=== PATIENT | male | born 1985 | race Two or more races ===

== ENCOUNTER → 2024-10-05 | Outpatient (CLI) | payer BC ==
[2024-10-05 08:03] LABS: Urine Protein, UAD Negative (Negative)
[2024-10-05 08:04] LABS: Hematocrit 48.9 % (41.0-53.0); Hemoglobin 17.4 g/dL (13.5-17.5); Mean Corpuscular Hemoglobin 30.3 pg (28.0-32.0); Mean Corpuscular Volume 84.9 fL (80.0-100.0); Nucleated Red Blood Cells % 0.2 %
[2024-10-05 08:25] LABS: Alkaline Phosphatase 76 U/L (46-116); Anion Gap 7 (5-15); BUN/Creatinine Ratio 14.2 (10.0-20.0); Blood Urea Nitrogen 19 mg/dL (9-23); Calcium 9.6 mg/dL (8.7-10.4); Chloride 103 mmol/L (98-107); Glucose 96 mg/dL (74-106); Potassium 4.1 mmol/L (3.5-5.1); Sodium 141 mmol/L (136-145); Total Protein 7.1 g/dL (5.7-8.2); Triglycerides 106 mg/dL (< 150)
[2024-10-05 08:26] LABS: Bilirubin, Total 1.2 mg/dL (0.2-1.0)
[2024-10-05 08:30] LABS: Alanine Aminotransferase 45 U/L (7-40); Albumin 5.0 g/dL (3.2-4.8); Carbon Dioxide 31 mmol/L (20-31); Cholesterol 246 mg/dL (< 200); HDL Cholesterol 67 mg/dL (40-59)
[2024-10-05 10:42] LABS: Free T4 (Free Thyroxine) 1.31 ng/dL (0.89-1.76)
== END | disposition home or self-care (01) ==
LOC: LAB 07:08
PROVIDERS: ATTEND Internal Medicine
DX: Z00.00 Encounter for general adult medical examination without abnormal findings (principal)
CPT/HCPCS: 36415; 80053; 80061; 81001; 82043; 82306; 82607; 83036; 84439; 84443; 84480; 85025

== ENCOUNTER 2024-10-31 06:21 | Outpatient (CLI) | payer BC ==
[2024-10-31 07:25] LABS: Alanine Aminotransferase 25 U/L (7-40); Albumin 4.5 g/dL (3.2-4.8); Alkaline Phosphatase 66 U/L (46-116); Anion Gap 7 (5-15); BUN/Creatinine Ratio 9.0 (10.0-20.0); Blood Urea Nitrogen 12 mg/dL (9-23); Calcium 9.4 mg/dL (8.7-10.4); Carbon Dioxide 30 mmol/L (20-31); Chloride 101 mmol/L (98-107); Glucose 86 mg/dL (74-106); Potassium 4.1 mmol/L (3.5-5.1); Sodium 138 mmol/L (136-145); Total Protein 6.8 g/dL (5.7-8.2)
[2024-10-31 07:29] LABS: Bilirubin, Total 1.6 mg/dL (0.2-1.0)
[2024-10-31 07:44] LABS: Cholesterol 179 mg/dL (< 200); HDL Cholesterol 67 mg/dL (40-59); Triglycerides 58 mg/dL (< 150)
== END 2024-10-31 17:00 | disposition home or self-care (01) ==
LOC: LAB 06:21
PROVIDERS: ATTEND Internal Medicine
DX: E78.00 Pure hypercholesterolemia, unspecified (principal); R94.4 Abnormal results of kidney function studies; R17 Unspecified jaundice
CPT/HCPCS: 36415; 80053; 80061

== ENCOUNTER 2024-11-15 06:27 | Outpatient (CLI) | payer BC ==
[2024-11-15 07:00] LABS: Alanine Aminotransferase 22 U/L (7-40); Albumin 4.4 g/dL (3.2-4.8); Alkaline Phosphatase 75 U/L (46-116); Anion Gap 7 (5-15); BUN/Creatinine Ratio 9.2 (10.0-20.0); Blood Urea Nitrogen 13 mg/dL (9-23); Calcium 9.5 mg/dL (8.7-10.4); Carbon Dioxide 31 mmol/L (20-31); Chloride 102 mmol/L (98-107); Creatine Kinase IFCC 131 U/L (46-171); Glucose 92 mg/dL (74-106); Potassium 4.1 mmol/L (3.5-5.1); Sodium 140 mmol/L (136-145); Total Protein 6.7 g/dL (5.7-8.2)
[2024-11-15 07:01] LABS: Bilirubin, Total 1.3 mg/dL (0.2-1.0)
== END 2024-11-15 17:00 | disposition home or self-care (01) ==
LOC: LAB 06:27
PROVIDERS: ATTEND Internal Medicine
DX: E78.00 Pure hypercholesterolemia, unspecified (principal); K94.39 Other complications of esophagostomy; R17 Unspecified jaundice
CPT/HCPCS: 36415; 80053; 82550

== ENCOUNTER 2024-11-26 00:19 | Emergency (ER) | payer SELFPAY ==
[~2024-11-26] VITALS: Ht 30.5 cm; Wt 72.9 kg
[2024-11-26 00:20] VITALS: BP 137/80; PULSE 53; RESP 16; TEMP 97.7; O2SAT 98
[2024-11-26] MEDS: AMOXICILLIN/CLAVUL 875 MG TAB PO ONE (00:45)
[2024-11-26] MEDS: RABIES IMMUNE GLOBULIN 300unit/2ml (150unit/ml) INJ IM ONE ×2 (00:45→02:00)
[2024-11-26] MEDS ORDERED: AUG875T PO (00:57)
[2024-11-26] MEDS ORDERED: BACI-14 EX (00:59)
--- NOTE | 2024-11-26 01:00 | ED.PDOC ---
History of Present Illness HPI Comments This is a 39-year-old male with no past medical history who presented to the ER with a chief complaint of cat bites, patient reports that he was trying to get rid of stray cats who entered his house, and the cat bit him on his fingers, 3rd and 4th digits, with punctate bite carolyn, and erythema but no discharge. Patient denies fever, chills, nausea, vomiting for any systemic symptoms. Patient seen and examined in ER lobby, no drainage or purulence noted at the site of bite wound, bite cleaned with NS, Betadine and topical bacitracin applied. Rabies IV IG, rabies vaccine and Tdap vaccine administered. Chief Complaint: Animal Bite Time Seen by MD: 00:24 Allergies: Coded Allergies: No Known Drug Allergy (Verified Allergy, Unknown, 11/26/24) Home Meds Active Scripts Bacitracin Base (Antibiotic Ointment) 500 Unit/Gm Oin, 500 UNIT EX BIDPRN PRN for 5 Days, #3 OIN 0 Refills Prov:ABHINAV HEARN RESIDENT 11/26/24 Amoxicillin & Pot Clavulanate (AUGMENTIN TABLET) 875 Mg Tb, 875 MG PO BID for 5 Days, #10 TAB 0 Refills Prov:ABHINAV HEARN RESIDENT 11/26/24 Information Source: Patient, Relative Mode of Arrival: Ambulatory Past Medical History PAST MEDICAL HISTORY: Denies Surgical History: Denies all surgeries Constitutional: denies: chills, diaphoresis, fatigue, fever, malaise, sweats, weakness, others EENTM: denies: blurred vision, double vision, ear bleeding, ear discharge, ear drainage, ear pain, ear ringing, eye pain, eye redness, hearing loss, mouth pain, mouth swelling, nasal discharge, nose bleeding, nose congestion, nose pain, photophobia, tearing, throat pain, throat swelling, voice changes, others Respiratory: denies: cough, hemoptysis, orthopnea, SOB at rest, shortness of breath, SOB with excertion, stridor, wheezing, others Cardiovascular: denies: chest pain, dizzy spells, diaphoresis, Dyspnea on exertion, edema, irregular heart beat, left arm pain, lightheadedness, palpitations, PND, syncope, others Gastrointestinal: denies: abdomen distended, abdominal pain, blood streaked bowels, constipated, diarrhea, dysphagia, difficulty swallowing, hematemesis, melena, nausea, poor appetite, poor fluid intake, rectal bleeding, rectal pain, vomiting, others Genitourinary: denies: burning, dysuria, flank pain, frequency, hematuria, incontinence, penile discharge, penile sore, pain, testicle pain, testicle swelling, urgency, others Neurological: denies: dizziness, fainting, headache, left sided numbness, left sided weakness, numbness, paresthesia, pre-existing deficit, right sided numbness, right sided weakness, seizure, speech problems, tingling, tremors, weakness, others Musculoskeletal: denies: back pain, gout, joint pain, joint swelling, muscle pain, muscle stiffness, neck pain, others Integumetry: reports: wounds (Third and 4th digit bite carolyn) Allergic/Immunocompromised: denies: Difficulty Healing, Frequent Infections, Hives, Itching, others Hematologic/Lymphatic: denies: anemia, blood clots, easy bleeding, easy bruising, swollen glands, others Endocrine: denies: excessive hunger, excessive sweating, excessive thirst, excessive urination, flushing, intolerance to cold, intolerance to heat, un explained weight gain, unexplained weight loss, others Psychiatric: denies: anxiety, bipolar disorder, depression, hopeless, panic disorder, schizophrenia, sleepless, suicidal, others Physical Exam General Appearance: No Apparent Distress, Normal HEENT: Normal ENT Inspection, Pharynx Normal, TMs Normal Neck: Full Range of Motion, Non-Tender, Normal, Normal Inspection Respiratory: Chest Non-Tender, Lungs Clear, No Accessory Muscle Use, No Respiratory Distress, Normal Breath Sounds Cardiovascular: No Edema, No JVD, No Murmur, No Gallop, Normal Peripheral Pulses, Regular Rate/Rhythm Breast Exam: Deferred Gastrointestinal: No Organomegaly, Non Tender, No Pulsatile Mass, Normal Bowel Sounds, Soft Genitalia: Deferred Pelvic: Deferred Rectal: Deferred Extremities: No calf tenderness, Normal capillary refill, Normal inspection, Normal range of motion, Non-tender, No pedal edema, Other (Third and 4th digits have bite wounds, with erythema, no drainage or purulence noted, no tenderness) Musculoskeletal : Apperance: Normal Neurologic: Alert, special programs director II-XII nml as Tested, No Motor Deficits, Normal Affect, Normal Mood, No Sensory Deficits Cerebellar Function: Normal Reflexes: Normal Skin: Dry, Normal Color, Warm Lymphatic: No Adenopathy Was a procedure done? Was a procedure done?: No Differential Dx Considerations may include: Cat bite X-Ray, Labs, Meds, VS Vital Signs Date Time Temp Pulse Resp B/P (MAP) Pulse Ox O2 Delivery O2 Flow Rate FiO2 11/26/24 00:20 97.7 53 16 137/80 98 97.7 Current Medications Medications (Trade) Dose Ordered Sig/Curry Route Start Time Stop Time Status Last Admin Diphtheria/ Tetanus/Acell Pertussis (Boostrix T-Dap) 0.5 ml ONCE ONCE IM 11/26/24 00:45 11/26/24 01:06 DC 11/26/24 01:26 Amoxicillin/ Clavulanate Potassium (Augmentin Tablet) 875 mg ONCE ONCE PO 11/26/24 00:45 11/26/24 01:06 DC 11/26/24 00:45 Rabies Vaccine (Rabavert) 2.5 units ONCE ONCE IM 11/26/24 00:45 11/26/24 01:06 DC 11/26/24 01:27 Bacitracin 1 applic ONCE ONCE TOP 11/26/24 01:00 11/26/24 01:06 DC 11/26/24 01:23 Rabies Immune Globulin (Kedrab) 1,440 unit ONCE ONCE IM 11/26/24 02:00 11/26/24 02:01 DC 11/26/24 02:00 Images Reviewed?: Images reviewed and evaluated by me Time of 1ST Reevaluation: 01:00 Reevaluation 1ST: Unchanged Consultation: PCP Patient Education/Counseling: Diagnosis, Treatment, Prognosis, Need For Follow Up Family Education/Counseling: Diagnosis, Treatment, Prognosis, Need For Follow Up SEPSIS Sepsis Screen Date sepsis recognized/suspect: Nov 26, 2024 Time Sepsis recognized/suspect: 0022 Recent Procedure: No On Antibiotic Therapy: No Respiratory Rate >20: No Heart Rate >90: No Temp<36 C (96.8 F) or >38.3 C: No SBP <90 or MAP <65 mmHG: No New Acute Mental Status Change: No Is the patient on CPAP, BIPAP,: No Vital Signs Date Time Temp Pulse Resp B/P (MAP) Pulse Ox O2 Delivery O2 Flow Rate FiO2 11/26/24 00:20 97.7 53 16 137/80 98 97.7 Medications Medications Dose Ordered Sig/Curry Route Start Time Stop Time Status Last Admin Dose Admin Amoxicillin/ Clavulanate Potassium 875 mg ONCE ONCE PO 11/26/24 00:45 11/26/24 01:06 DC 11/26/24 00:45 Bacitracin 1 applic ONCE ONCE TOP 11/26/24 01:00 11/26/24 01:06 DC 11/26/24 01:23 Diphtheria/ Tetanus/Acell Pertussis 0.5 ml ONCE ONCE IM 11/26/24 00:45 11/26/24 01:06 DC 11/26/24 01:26 Rabies Immune Globulin 1,440 unit ONCE ONCE IM 11/26/24 02:00 11/26/24 02:01 DC 11/26/24 02:00 Rabies Vaccine 2.5 units ONCE ONCE IM 11/26/24 00:45 11/26/24 01:06 DC 11/26/24 01:27 Departure 1 Departure Time of Disposition: 01:30 Impression: Primary Impression: Cat bite of finger Disposition: HOME / SELF CARE / HOMELESS Condition: Stable Additional Instructions: Complete rabies vaccine HDCV or PCECV : 1 dose 1 mL intramuscular on day 3, 7, 14. day 0 vaccine has been administered. Rabies immunoglobulin has been administered 20 IU per kg body weight Tablet Augmentin 875 b.i.d. for 5 days Bacitracin ointment b.i.d. p.r.n. Do not close the wound, enema bites originally left open to heal to prevent tripping bacteria inside Please go to the ER or call your doctor if you noticed redness swelling warmth or pus from the bite, fever or chills, numbness, trouble moving fingers or joints Do not try to catch or handle the stray cat e-Prescriptions Bacitracin Base (Antibiotic Ointment) 500 Unit/Gm Oin 500 UNIT EX BIDPRN PRN for 5 Days, #3 OIN 0 Refills Prov: NADIYAABHINAV RESIDENT 11/26/24 Amoxicillin & Pot Clavulanate (AUGMENTIN TABLET) 875 Mg Tb 875 MG PO BID for 5 Days, #10 TAB 0 Refills Prov: NADIYAABHINAV RESIDENT 11/26/24 Discharged With: Self, Spouse Comments Attestation: I saw and evaluated the patient. I agree with the findings and plan of care as documented by the resident note. GUICHO SANTOS MD Critical Care Note Critical Care Time?: No Stability Stability form required: No Heart Score Heart Score: Heart Score Response (Comments) Value History N/A 0 EKG N/A 0 Age N/A 0 Risk Factors N/A 0 Troponin N/A 0 Total 0 ABHINAV HEARN RESIDENT Nov 26, 2024 01:00 GUICHO SANTOS MD Nov 26, 2024 05:54
[2024-11-26] MEDS: BACITRACIN TOP OINT 1 UD PKG TOP ONE (01:23)
[2024-11-26] MEDS: TETANUS-DIPTH-ACEL PERTUSSIS 0.5ML SYR Tdap IM ONE (01:26)
[2024-11-26] MEDS: RABIES VACCINE (PCEC)/PF 2.5 UNITS IM ONE (01:27)
[2024-11-26] MEDS: RABIES IMMUNE GLOBULIN 300unit/2ml (150unit/ml) INJ ONE (01:43)
== END 2024-11-26 01:19 | disposition home or self-care (01) ==
LOC: ER 00:19
DX: S60.472A Other superficial bite of right middle finger, initial encounter (principal); S60.474A Other superficial bite of right ring finger, initial encounter; W55.01XA Bitten by cat, initial encounter; Y93.89 Activity, other specified; Y92.89 Other specified places as the place of occurrence of the external cause; Y99.8 Other external cause status
CPT/HCPCS: 90377; 90471; 90472; 90675; 90715

== ENCOUNTER 2025-01-02 07:42 | Outpatient (CLI) | payer BC ==
[~2025-01-02 07:42] MED LIST: AUG875T PO; BACI-14 EX
[2025-01-02 08:43] LABS: Alanine Aminotransferase 38 U/L (7-40); Albumin 4.8 g/dL (3.2-4.8); Alkaline Phosphatase 102 U/L (46-116); Anion Gap 9 (5-15); BUN/Creatinine Ratio 8.3 (10.0-20.0); Bilirubin, Total 1.1 mg/dL (0.2-1.0); Blood Urea Nitrogen 11 mg/dL (9-23); Calcium 9.3 mg/dL (8.7-10.4); Chloride 104 mmol/L (98-107); Cholesterol 179 mg/dL (< 200); Glucose 87 mg/dL (74-106); Potassium 4.0 mmol/L (3.5-5.1); Sodium 144 mmol/L (136-145); Total Protein 7.5 g/dL (5.7-8.2); Triglycerides 51 mg/dL (< 150)
[2025-01-02 08:44] LABS: Carbon Dioxide 31 mmol/L (20-31); Creatine Kinase IFCC 190 U/L (46-171); HDL Cholesterol 69 mg/dL (40-59)
== END 2025-01-02 17:00 | disposition home or self-care (01) ==
LOC: LAB 07:42
PROVIDERS: ATTEND Internal Medicine
DX: E55.9 Vitamin D deficiency, unspecified (principal); E78.00 Pure hypercholesterolemia, unspecified; R94.4 Abnormal results of kidney function studies; R17 Unspecified jaundice
CPT/HCPCS: 36415; 80053; 80061; 82306; 82550